=== PATIENT | female | born 1960 ===

== ENCOUNTER 2024-11-02 12:35 | Outpatient (AMB) | payer BC, SELFPAY ==
--- OUTSIDE RECORDS SUMMARY | 2024-11-02 13:01 | XMS_ITS | Clinical Summary ---
Author Organization [facility] Address [address] [address] Phone Care Team Providers Care Pattern Drum Maker Name Role Phone Charles Mark MD Primary Care Provider + Allergies Active Allergy Reactions Criticality Noted Date Comments Mold 11/13/2017 Pollen Extracts 11/13/2017 Medications chlorthalidone (HYGROTON) 25 MG tablet Take 0.5 tablets by mouth every morning. 01/11/2024 Active losartan (COZAAR) 100 MG tablet Take 1 tablet by mouth every morning. 01/18/2024 Active metoprolol succinate (TOPROL-XL) 25 MG 24 hr tablet Take 1 tablet by mouth every morning. 11/15/2023 Active OXcarbazepine (TRILEPTAL) 150 MG tablet Take 1 tablet by mouth 2 (two) times a day. 01/28/2024 Active simvastatin (ZOCOR) 20 MG tablet Take 20 mg by mouth nightly at bedtime. 01/13/2024 Active cholecalciferol (VITAMIN D3) 400 unit tablet Take 400 Units by mouth daily. Active Social History Tobacco Use Types Packs/Day Years Used Date Smoking Tobacco: Never Smokeless Tobacco: Never Tobacco Cessation:Counseling Given: Not Answered Alcohol Use Standard Drinks/Week Comments Not Currently 0 (1 standard drink = 0.6 oz pur e alcohol) Education Answer Date Recorded Are you interested in more education? Not on didi e 02/03/2024 Are you concerned about learning? Not on file 02/03/2024 No 02/03/2024 No 02/03/2024 Digital Access Answer Date Recorded No 02/03/2024 No 02/03/2024 Reliable internet access at home? Not on file 02/03/2024 Device with a working camera? Not on file Comments Unknown Sex and Gender Information Value Date Recorded Sex Assigned at Not on file Legal Sex Female 10:45 AM EST Gender Identity Not on file Sexual Orientation Not on file Last Filed Vital Signs Vital Sign Reading Time Taken Comments Blood Pressure 187/78 02/03/2024 11:13 AM EST Pulse 71 02/03/2024 11:13 AM EST Temperature 37.1 C (98.8 F) 02/03/2024 11:13 AM EST Respiratory Rate 17 02/03/2024 11:13 AM EST Oxygen Saturation 100% 02/03/2024 11:13 AM EST Inhaled Oxygen Concentration - - Weight - - Height - - Body Mass Index - - Plan of Treatment Health Maintenance Due Date Last Done Comments Adult Td,Tdap Booster 1960 CREATININE LEVEL 1958 LIPID PANEL 1958 POTASSIUM LEVEL 1958 DEPRESSION SCREENING 1970 HEPATITIS C SCREENING 1976 MAMMOGRAM 1998 COLOGUARD 10/11/2003 COLONOSCOPY 10/11/2003 COLORECTAL CANCER SCREENING 10/11/2003 FIT TEST 10/11/2003 FOBT 10/11/2003 SIGMOIDOSCOPY 10/11/2003 VIRTUAL COLONOSCOPY 10/11/2003 PNEUMOCOCCAL VACCINES (50+ years) (1 of 1 - PCV) 2008 ZOSTER VACCINES (1 of 2) 2008 OSTEOPOROSIS SCREENING INITI AL (ONE-TIME) 10/11/2023 COVID-19 VACCINE ( - 2023-2 5 season) 2023 02/22/2021, 08/07/2020, 07/05/2020 RSV VACCINE (1 - 1-dose 75+ series) 2033 SMOKING STATUS SCREENING (On ce After 26 Yrs) Completed 02/03/2024 HEPATITIS A VACCINES Aged Out No long er eligible based on patient's age to complete this topic HIB VACCINES Aged Out No longer eligi ble based on patient's age to complete this topic MENINGOCOCCAL VACCINES (ACWY) Aged Out No longer eligible based on patient's age to complete this topic MENINGOCOCCAL VACCINES (B) Aged Out N o longer eligible based on patient's age to complete this topic Medical Devices Not on file Insurance [facility] MEDICARE A [facility] MEDICARE A [facility] MEDICARE A [facility] MEDICARE A [facility] MEDICARE A [facility] MEDICARE A Care Teams Pattern Drum Maker Relationship Specialty Start Date End Date Charles Mark MD [address] [facility] [address] [place] [address] PCP - General Internal Medicine 02/03/24 Additional Source Comments The information contained in this document represents components of the legal health record. It is not the complete legal health record.[facility]
--- OUTSIDE RECORDS SUMMARY | 2024-11-02 13:01 | XMS_ITS ---
Author Name [facility] Organization Unknown History of Medication Use Medication Directions Dispensed Refills Start Date End Date Stat gabapentin (NEURONTIN) 100 MG capsule Take 1 capsule (100 mg total) by mouth 3 (three) times a day. 02/12/2017 active alendronate 70 mg tablet TAKE 1 TABLET BY MOUTH ONCE A WEEK WITH 6-8OZ OF WATER AT LEAST 30 MIN BEFORE FIRST FOOD OR ANY MED DO NOT LIE DOWN FOR 30 MIN 5 completed cetirizine 10 mg tablet TAKE 1/2 tablet By MOUTH Daily,x90 DAYS] 5 completed chlorthalidone 25 mg tablet TAKE 1/2 tablet BY MOUTH DAILY 5 completed hydralazine 10 mg tablet TAKE 1 TABLET BY MOUTH TWICE DAILY BEFORE breakfast AND dinner 5 completed prednisone 20 mg tablet TAKE 2 TABLETS BY MOUTH DAILY FOR 3 DAYS WITH food 5 completed Vitamin C 1,000 mg tablet 4 completed metoprolol succ 25 mg-hydrochlorothiazid e 12.5 mg tablet,ext.rel 24 hr 02 3 completed valacyclovir 1 gram tablet TAKE 1 TABLET BY MOUTH DAILY 3 completed fluorometholone 0.1 % eye drops,suspension 01 9 completed evening primrose oil 8 completed gabapentin 100 mg capsule 8 completed prednisolone acetate 1 % eye drops,suspension 7 completed Culturelle 10 billion cell capsule active fluticasone propionate 50 mcg/actuation nasal spray,suspension instill 1 SPRAY into EACH nostril ONCE DAILY active gabapentin 300 mg capsule TAKE 1 CAPSULE BY MOUTH THREE TIMES DAILY active losartan 100 mg tablet TAKE 1 TABLET BY MOUTH DAILY active metoprolol succinate ER 100 mg tablet,extended release 24 hr TAKE 1 TABLET BY MOUTH DAILY active metoprolol succinate ER 25 mg tablet,extended release 24 hr TAKE 1 TABLET BY MOUTH ONCE DAILY active oxcarbazepine ER 150 mg tablet,extended release 24 hr TAKE 1 TABLET BY MOUTH ONCE DAILY active Culturelle 10 billion cell capsule Culturelle 10 billion cell capsule completed gabapentin 300 mg capsule TAKE 1 CAPSULE BY MOUTH THREE TIMES DAILY TAKE 1 CAPSULE BY MOUTH THREE TIMES DAILY completed Vitamin D Vitamin D completed Allergies Allergen Reaction Severity Comment Documented Date Source Statu s GR[facility] HOUSE DUST MITE [facility] MOLD [facility] MOLD EXTRACT [facility] active TREE AND SHRUB POLLEN [facility] Problems Problem Status Onset Date Problem Type Date of Resoluti on Source Scoliosis deformity of spine active ProblemAct [facility] Ventricular premature beats active 2018-08-11 ProblemAct [facility] Osteoporosis active 2016-07-16 ProblemAct [facility] Left trigeminal neuralgia active 2017-07-22 ProblemAct [facility] Hypercholesterolemia active ProblemAct [facility] Encounters Encounter Type Encounter Reason Primary Diagnosis Location Date Ambulatory 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 abn findings 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 abn findings [facility] 06/02/2024 Ambulatory 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
--- OUTSIDE RECORDS SUMMARY | 2024-11-02 13:01 | XMS_ITS | Clinical Summary ---
Author Organization [facility] Address [address] [place] [address] Care Team Providers Care Hydraulic Engineer Name Role Phone Lolly Goode MD Primary Care Provider Allergies Active Allergy Reactions Criticality Noted Date Comments Environmental 11/13/2017 Mold 11/13/2017 Medications Simvastatin (ZOCOR) 20 MG tablet Take 1 tablet daily 90 tablet 0 11/13/2017 Active Gabapentin (NEURONTIN) 300 MG capsule 1 po qam, 1 po qpm & 1po qhs 180 3 11/13/2017 Active Vitamin D3 (VITAMIN D-3) 25 MCG (1000 UT) tablet TAKE 1 TABLET DAILY. 0 11/13/2017 Active Ibuprofen (ADVIL,MOTRIN) 800 MG tablet TAKE 1 TABLET EVERY 6 HOURS NEEDED. 0 11/13/2017 Active OXcarbazepine (TRILEPTAL) 150 MG tablet TAKE 1 TABLET BY MOUTH TWICE DAILY 60 6 11/13/2017 Active Active Problems Problem Noted Date Diagnosed Date Cervical radiculopathy, chronic 03/14/2019 Fatigue 03/14/2019 Arthritis 11/13/2017 Meningioma, multiple 11/13/2017 Scoliosis 11/13/2017 Back pain 11/13/2017 DJD (degenerative joint disease) 11/13/2017 Trigeminal neuralgia 11/13/2017 Atypical facial pain 11/13/2017 Family History Medical History Relation Name Comments Heart Disorder Father myocardial in farction : Father Other Father : Moth er, Father, Sibling CAD/PVD - Early Mother coronary art karl disease : Mother Hypertension Mother hypertension : Mother Other Mother : Moth er, Father, Sibling Allergies (med/food/envrnmt) Other allergies : Family History Diabetes Other diabetes mellit us : Sibling, Family History Headache/Migraine Other Headache : Family History Heart Disorder Other cardiac disor darren : Family History Cancer - Blood Sibling leukemia : Si josee Diabetes Sibling diabetes mellit us : Sibling, Family History Lipid/Cholesterol Abnormality Sibling High cholesterol : Sibling Other Sibling : Moth er, Father, Sibling Thyroid Disorder Sibling hypothyroid ism : Sibling Relation Name Status Comments Father Mother Other Sibling Social History Tobacco Use Types Packs/Day Years Used Date Smoking Tobacco: Never Assessed Comments:Smoking Status:Non- smoker Sex and Gender Information Value Date Recorded Sex Assigned at Not on file Legal Sex Male 9:09 PM EDT Gender Identity Not on file Sexual Orientation Not on file Last Filed Vital Signs Vital Sign Reading Time Taken Comments Blood Pressure 132/80 03/14/2019 12:06 PM EST Pulse 72 03/14/2019 12:06 PM EST Temperature - - Respiratory Rate 12 03/14/2019 12:06 PM EST Oxygen Saturation - - Inhaled Oxygen Concentration - - Weight - - Height - - Body Mass Index - - Plan of Treatment Health Maintenance Due Date Last Done Comments Hepatitis C Screening 1960 DTaP/Tdap/Td (1 - Tdap) 1976 Colon Cancer Screening 10/11/2003 Pneumococcal 50+ years (1 of 1 - PCV) 2008 Zoster (Shingrix) (1 of 2) 2008 COVID-19 Vaccine ( - 2023-2 5 season) 2023 Influenza (#1) 2024 RSV (1 - 1-dose 75+ series) 2033 Abdominal Aorta Imaging Discontinued HPV Vaccine (No Doses Required) Completed Hep A Aged Out No longer eligi ble based on patient's age to complete this topic Hep B Aged Out No longer eligi ble based on patient's age to complete this topic Hib Aged Out No longer eligi ble based on patient's age to complete this topic Meningococcal ACWY Aged Out No longer eligible based on patient's age to complete this topic Zoster (Zostavax) Discontinued Care Teams Hydraulic Engineer Relationship Specialty Start Date End Date Lolly Goode MD [address] [place] [address] PCP - General 10/13/22
== END 2024-11-02 12:43 | disposition home or self-care (01) ==
LOC: HO.HMGAL 12:35
PROVIDERS: PCP Internal Medicine; Visit Provider Registered Nurse Emergency
DX: J30.89 Other allergic rhinitis (principal)
CPT/HCPCS: 95117; 95165

== ENCOUNTER 2024-11-23 14:17 | Outpatient (AMB) | payer BC, SELFPAY ==
--- OUTSIDE RECORDS SUMMARY | 2024-11-23 18:02 | XMS_ITS | Clinical Summary ---
Author Organization [facility] Address [address] [place] [address] Care Team Providers Care Pit Manager Name Role Phone Lolly Goode MD Primary Care Provider [phone] Allergies Active Allergy Reactions Criticality Noted Date [...] Screening 1960 DTaP/Tdap/Td (1 - Tdap) 1976 Pneumococcal 50+ years (1 of 1 - PCV) 2008 Zoster (Shingrix) (1 of 2) 2008 COVID-19 Vaccine ( - 2023-2 5 season) 2024 Influenza (#1) 2024 RSV (1 - 1-dose [...] this topic Zoster (Zostavax) Discontinued Care Teams Pit Manager Relationship Specialty Start Date End Date Lolly Goode MD [address] [place] [address] PCP - General 10/13/22
== END 2024-11-23 14:18 | disposition home or self-care (01) ==
LOC: HO.HMGAL 14:17
PROVIDERS: PCP Internal Medicine; Visit Provider Registered Nurse Emergency
DX: J30.89 Other allergic rhinitis (principal)
CPT/HCPCS: 95117; 95165

== ENCOUNTER 2024-12-14 13:27 | Outpatient (AMB) | payer BC, SELFPAY | END 2024-12-14 13:28 | disposition home or self-care (01) | LOC: HO.HMGAL 13:27 | PROVIDERS: PCP Nurse Practitioner Family; Visit Provider Registered Nurse Emergency | DX: J30.89 Other allergic rhinitis (principal) | CPT/HCPCS: 95117; 95165 ==

== ENCOUNTER 2025-01-04 13:35 | Outpatient (AMB) | payer BC, SELFPAY ==
--- OUTSIDE RECORDS SUMMARY | 2025-01-04 17:23 | XMS_ITS | Clinical Summary ---
Author Organization [facility] Address [address] [place] [address] Care Team Providers Care Fagot Heater Name Role Phone Lolly Goode MD Primary Care Provider [phone] Allergies Active Allergy Reactions Criticality Noted Date [...] of 2) 2008 COVID-19 Vaccine ( - 2024-2 6 season) 2024 Influenza (#1) 2024 RSV (1 [...] this topic Zoster (Zostavax) Discontinued Care Teams Fagot Heater Relationship Specialty Start Date End Date Lolly Goode MD [address] [place] [id number] PCP - General 10/13/22
--- OUTSIDE RECORDS SUMMARY | 2025-01-04 17:23 | XMS_ITS | Clinical Summary ---
Author Organization [facility] Address [address] [address] Phone Care Team Providers Care Wool Sampler Name Role Phone Charles Mark MD Primary [...] 2008 OSTEOPOROSIS SCREENING INITI AL (ONE-TIME) 10/11/2023 INFLUENZA VACCINE (#1) 2024 COVID-19 VACCINE (4 - 2024-2 6 season) 2024 02/22/2021, 08/07/2020, 07/05/2020 RSV VACCINE (1 - [...] topic Medical Devices Not on file Insurance [facility] MEDICARE A [facility] A [facility] A [facility] MEDICARE A [facility] MEDICARE A [facility] MEDIC[facility] A Care Teams Wool Sampler Relationship Specialty Start Date End Date Charles Mark MD [address] [address] PCP - General Internal Medicine 02/03/24 Additional Source Comments The information contained in this document represents components of the legal health record. It is not the complete legal health record.[facility]
== END 2025-01-04 13:37 | disposition home or self-care (01) ==
LOC: HO.HMGAL 13:35
PROVIDERS: PCP Nurse Practitioner Family; Visit Provider Registered Nurse Emergency
DX: J30.89 Other allergic rhinitis (principal)
CPT/HCPCS: 95117; 95165

== ENCOUNTER 2025-01-23 14:59 | Outpatient (AMB) | payer BC, SELFPAY ==
--- OUTSIDE RECORDS SUMMARY | 2025-01-24 05:31 | XMS_ITS | Clinical Summary ---
Author Organization [facility] Address [address] [place] [address] Care Team Providers Care Radio Television Announcer Name Role Phone Lolly Goode MD Primary Care Provider [phone] Allergies Active Allergy Reactions Criticality Noted Date [...] this topic Zoster (Zostavax) Discontinued Care Teams Radio Television Announcer Relationship Specialty Start Date End Date Lolly Goode MD [address] [place] [phone] PCP - General 10/13/22
--- OUTSIDE RECORDS SUMMARY | 2025-01-24 05:31 | XMS_ITS | Clinical Summary ---
Author Organization [facility] Address [address] [address] Phone Care Team Providers Care Crna Name Role Phone Charles Mark MD Primary [...] on patient's age to complete this topic IPV VACCINES Aged Out No longer eligi ble based on patient's age to complete this topic MENINGOCOCCAL VACCINES (ACWY) Aged Out No longer eligible based on patient's age to complete this topic MENINGOCOCCAL VACCINES (B) Aged Out N o longer eligible based on patient's age to complete this topic Medical Devices Not on file Insurance [facility] MEDICARE A [facility] MEDICARE A [facility] MEDICARE A [facility] MEDICARE A [facility] MEDICARE A [facility] MEDICARE A Care Teams Crna Relationship Specialty Start Date End Date Charles Mark MD [address] [place] [id number] PCP - General Internal Medicine 02/03/24 Additional Source Comments The information contained in this document represents components of the legal health record. It is not the complete legal health record.[facility]
== END 2025-01-23 15:01 | disposition home or self-care (01) ==
LOC: HO.HMGAL 14:59
PROVIDERS: PCP Nurse Practitioner Family; Visit Provider Registered Nurse Emergency
DX: J30.89 Other allergic rhinitis (principal)
CPT/HCPCS: 95117; 95165